=== PATIENT | female | born 1985 | race African-American/Black ===

== ENCOUNTER 2019-01-06 19:07 | Inpatient (IN) | payer MEDICAID ==
[~2019-01-06] VITALS: Ht 157.5 cm; Wt 61.7 kg
[2019-01-06] MEDS ORDERED: SODIUM CHLORIDE 0.9% 1,000 ML IV ONE (19:41)
[2019-01-06] MEDS ORDERED: KETOROLAC 30MG/ML VIAL IV STA (19:41)
[2019-01-06] MEDS ORDERED: SODIUM CHLORIDE 0.9% 1000ML BAG (SEPSIS BOLUS) IV ONE (19:45)
[2019-01-06 20:22] LABS: CHLORIDE 99 mEq/L (98-107); HCG SCREEN NEGATIVE
[2019-01-06 20:28] LABS: HEMATOCRIT. 36.3 % (36.0-48.0); HEMOGLOBIN. 11.9 g/dL (12.0-16.0); MEAN CORPUSCULAR HEMOGLOBIN 30.5 pg (28.0-32.0); MEAN CORPUSCULAR VOLUME 93.1 fL (81.0-99.0); MEAN PLATELET VOLUME 7.7 fl (7.4-10.4); PLATELET 80 x1000/uL (130-400); RED CELL DISTRIBUTION WIDTH 14.8 % (11.6-14.6)
[2019-01-06 20:31] LABS: INR 1.2; PARTIAL THROMBOPLASTIN TIME 30.3 sec (23.4-31.0); PROTHROMBIN TIME 12.2 sec (9.6-11.0)
[2019-01-06 20:48] LABS: PLATELET ESTIMATE DECREASED
[2019-01-06 21:21] LABS: BG BASE EXCESS -10.1 mmol/L (-2.0-2.0); BG CARBOXYHEMOGLOBIN 0.3 % (0.5-1.5); BG DEOXYHEMOGLOBIN 1.3 % (0.0-5.0); BG FRACTION INSPIRED OXYGEN 28; BG HCO3 ACT 12.3 mmol/L (22.0-26.0); BG METHEMOGLOBIN 0.3 % (0.0-1.5); BG OXYGEN SATURATION 98.7 % (92.0-98.5); BG OXYHEMOGLOBIN 98.1 % (94.0-97.0); BG PCO2 19.4 mmHg (35.0-45.0); BG PH 7.419 (7.350-7.450); BG SAMPLE SITE RIGHT RADIAL; BG TOTAL HEMOGLOBIN 11.5 g/dL (12.0-18.0); BG VENT MODE NASAL CANNULA
[2019-01-06 22:27] LABS: CLARITY URINE CLEAR (CLEAR); COLOR URINE DARK YELLOW (YELLOW); KETONES URINE 2+ (NEGATIVE); LEUKOCYTE ESTERASE URINE TRACE (NEGATIVE); NITRITE URINE POSITIVE (NEGATIVE); OCCULT BLOOD URINE TRACE (NEGATIVE); PH URINE 6.5 (4.5-8.0); PROTEIN URINE 2+ (NEGATIVE); SPECIFIC GRAVITY URINE 1.038 (1.005-1.030)
[2019-01-06 22:38] LABS: *AMPHETAMINES SCREEN URINE NEGATIVE (NEGATIVE); *BARBITURATES SCREEN URINE NEGATIVE (NEGATIVE); *BENZODIAZEPINES SCREEN URINE NEGATIVE (NEGATIVE); *COCAINE SCREEN URINE NEGATIVE (NEGATIVE); METHADONE URINE SCREEN NEGATIVE (NEGATIVE); OPIATES URINE SCREEN PRESUMTIVE POSITIVE (NEGATIVE); PHENCYCLIDINE URINE SCREEN NEGATIVE (NEGATIVE)
[2019-01-06 22:39] LABS: CANNABINOID URINE SCREEN PRESUMTIVE POSITIVE (NEGATIVE)
[2019-01-06] MEDS ORDERED: VANCOMYCIN 1 G PREMIX 200 ML IV SCH (22:45)
[2019-01-06] MEDS ORDERED: PIPERACILLIN/TAZ 3.375G PREMIX 50 ML IV ONE (22:45)
[2019-01-07] VITALS (9 sets, daily range): BP systolic 100–119; BP diastolic 40–74
[2019-01-07] MEDS ORDERED: PIPERACILLIN/TAZOBACTAM 3.375 G in DEXT 5% WATER 100 ML IV SCH (06:00)
[2019-01-07] MEDS: SODIUM CHLORIDE 0.9% 1,000 ML IV SCH ×2 (06:38→18:19)
[2019-01-07] MEDS: VANCOMYCIN 750 MG PREMIX 150 ML IV SCH ×2 (08:35→16:00)
[2019-01-07 11:14] LABS: CREATINE KINASE 28 IU/L (26-192)
[2019-01-07 11:19] LABS: CREATINE KINASE MB FRACTION < 1.0 ng/mL (0.5-3.6)
[2019-01-07] MEDS ORDERED: morphine PO (13:20)
[2019-01-07] MEDS ORDERED: PROC-11 PO (13:20)
[2019-01-07] MEDS ORDERED: METO10TA3 PO (13:20)
[2019-01-07] MEDS ORDERED: HYDR2TAB4 PO (13:20)
[2019-01-07] MEDS: CEFEPIME 2,000 MG in DEXT 5% WATER 100 ML IV SCH (14:00)
[2019-01-07] MEDS ORDERED: ONDANSETRON HCL 4MG/2ML INJ IV PRN (16:00)
[2019-01-07] MEDS ORDERED: NALOXONE HCL 0.4 MG/ML 1ML VIAL IV PRN (19:00)
[2019-01-07] MEDS ORDERED: PROCHLORPERAZINE 10MG/2ML VIAL IV PRN (19:00)
[2019-01-07] MEDS ORDERED: HYDROMORPHONE HCL/PF 2MG/ML CPJ IV PRN (19:00)
[2019-01-07 19:59] LABS: CREATINE KINASE 57 IU/L (26-192)
[2019-01-07 20:00] LABS: CREATINE KINASE MB FRACTION < 1.0 ng/mL (0.5-3.6)
[2019-01-07] MEDS: LACTULOSE 20G/30ML UDC PO SCH ×2 (20:14→21:11)
[2019-01-07] MEDS ORDERED: KCL 20MEQ/100ML PREMIX 100 ML IV NR (22:00)
[2019-01-08] VITALS: BP 114/72
[2019-01-08] MEDS: VANCOMYCIN 750 MG PREMIX 150 ML IV SCH ×2 (00:15→08:53)
[2019-01-08] MEDS: CEFEPIME 2,000 MG in DEXT 5% WATER 100 ML IV SCH (01:11)
[2019-01-08 02:00] VITALS: BP 107/55
[2019-01-08 04:00] VITALS: BP 90/52
[2019-01-08] MEDS: SODIUM CHLORIDE 0.9% 1,000 ML IV SCH (04:41)
[2019-01-08 06:00] VITALS: BP 94/60
[2019-01-08] MEDS: LACTULOSE 20G/30ML UDC PO SCH (07:00)
[2019-01-08 08:00] VITALS: BP 88/47
[2019-01-08] MEDS ORDERED: ENOXAPARIN 40MG/0.4ML SYR SUBCUT SCH (09:00)
[2019-01-08 09:43] LABS: CHLORIDE 111 mEq/L (98-107)
[2019-01-08 10:00] VITALS: BP 81/49
[2019-01-08] MEDS ORDERED: SODIUM CHLORIDE 0.9% 250 ML IV ONE (10:15)
[2019-01-08] MEDS ORDERED: LACTULOSE 20G/30ML UDC PO SCH (14:00)
== END 2019-01-08 13:30 | disposition expired | DRG 720 ==
LOC: ER 19:07 → 3WST 22:39 → ENRESERV 23:15 → 3WST 01-07 00:26
PROVIDERS: ADMIT Internal Medicine; ATTEND Internal Medicine
DX: A41.9 Sepsis, unspecified organism (principal); R65.21 Severe sepsis with septic shock; G93.41 Metabolic encephalopathy; K85.90 Acute pancreatitis without necrosis or infection, unspecified; R64 Cachexia; C78.7 Secondary malignant neoplasm of liver and intrahepatic bile duct; D69.6 Thrombocytopenia, unspecified; C56.9 Malignant neoplasm of unspecified ovary; R16.0 Hepatomegaly, not elsewhere classified; T40.2X1A Poisoning by other opioids, accidental (unintentional), initial encounter; N28.1 Cyst of kidney, acquired; K72.90 Hepatic failure, unspecified without coma; N39.0 Urinary tract infection, site not specified; E87.6 Hypokalemia; R62.7 Adult failure to thrive; Y92.89 Other specified places as the place of occurrence of the external cause; Z85.43 Personal history of malignant neoplasm of ovary; Z92.21 Personal history of antineoplastic chemotherapy; Z68.24 Body mass index [BMI] 24.0-24.9, adult
CPT/HCPCS: 36415; 36600; 71045; 74176; 76770; 80048; 80076; 80202; 80305; 81003; 82140; 82375; 82550; 82553; 82805; 82962; 83605; 83735; 84145; 84484; 84703; 93005; 93970; 99285; A6261; J0692; J1885; J2543; J3370; J3480; J7030; J7060; A4315